=== PATIENT | female | born 1930 | race Caucasian/White ===

== ENCOUNTER → 2016-04-25 | Outpatient (CLI) | payer MEDICARE, OTHER ==
--- NOTE | 2016-04-25 10:36 | RAD ---
EXAM DESCRIPTION: Right shoulder series. CLINICAL HISTORY: Right shoulder pain. COMPARISON: None. TECHNIQUE: Three views of the shoulder were acquired. FINDINGS: No evidence of fracture or dislocation. Degenerative change of the acromioclavicular joint. The humeral head is high-riding which is suggestive of a rotator cuff tear. Osteophytes noted about the inferior margin of the glenoid and humeral head. IMPRESSION: Possible rotator cuff tear as the humeral head is high-riding Electronically signed by: London Malcolm MD 04/25/2016 10:34
== END ==
LOC: RAD 09:21
PROVIDERS: ATTEND Orthopaedic Surgery
DX: M25.511 Pain in right shoulder (principal)

== ENCOUNTER → 2016-05-16 | Outpatient (CLI) | payer MEDICARE, OTHER | LOC: GMAB 10:32 | PROVIDERS: ATTEND Family Medicine | DX: D50.9 Iron deficiency anemia, unspecified (principal) ==

== ENCOUNTER → 2016-08-09 | Outpatient (CLI) | payer MEDICARE, OTHER ==
--- NOTE | 2016-08-10 11:26 | RAD ---
EXAM DESCRIPTION: Pelvis CLINICAL HISTORY: 86 years, Female, PAIN COMPARISON: None. FINDINGS: No fractures or other acute abnormalities of the pelvis. Mild loss of joint space of both hips and axial direction. There is some disc disease and facet disease in lower lumbar spine IMPRESSION: No acute findings in the pelvis. 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
== END ==
LOC: RAD 14:13
PROVIDERS: ATTEND Orthopaedic Surgery
DX: M25.551 Pain in right hip (principal)

== ENCOUNTER → 2016-08-22 | Outpatient (CLI) | payer MEDICARE, OTHER | LOC: GMAB 10:16 | PROVIDERS: ATTEND Family Medicine | DX: D50.9 Iron deficiency anemia, unspecified (principal) ==

== ENCOUNTER → 2016-11-27 | Outpatient (CLI) | payer MEDICARE, OTHER | END | disposition home or self-care (01) | LOC: GMAB 10:03 | PROVIDERS: ATTEND Family Medicine | DX: D50.9 Iron deficiency anemia, unspecified (principal) ==

== ENCOUNTER → 2016-11-29 | Outpatient (CLI) | payer MEDICARE, OTHER ==
--- NOTE | 2016-11-29 11:15 | RAD ---
EXAM DESCRIPTION: Wrist,Right 3 Views CLINICAL HISTORY: 86 years, Female, PAIN IN RIGHT WRIST COMPARISON: FINDINGS: No fracture or dislocation. Degenerative type narrowing of the radiocarpal joint space. Calcification of the triangular fibrocartilage compatible pseudogout. Degenerative changes in the 1st carpometacarpal joint and laterally into carpal row. Arthritic changes in the 1st metacarpal phalangeal joint and interphalangeal joint of thumb. IMPRESSION: No acute fracture or dislocation. Findings of pseudogout in the wrist. Fairly advanced arthritic changes laterally in the wrist and visualized hand as discussed above Electronically signed by: Benji Urrutia MD 11/29/2016 11:14 AM CDT
== END | disposition home or self-care (01) ==
LOC: RESP 09:05
PROVIDERS: ATTEND Orthopaedic Surgery
DX: M25.531 Pain in right wrist (principal)

== ENCOUNTER → 2017-01-18 | Outpatient (CLI) | payer MEDICARE, OTHER | END | disposition home or self-care (01) | LOC: GMAB 11:25 | PROVIDERS: ATTEND Family Medicine | DX: E78.2 Mixed hyperlipidemia (principal); I10 Essential (primary) hypertension; E11.9 Type 2 diabetes mellitus without complications ==

== ENCOUNTER → 2017-06-01 | Outpatient (CLI) | payer MEDICARE, OTHER | LOC: GMAB 10:53 | PROVIDERS: ATTEND Family Medicine | DX: D50.9 Iron deficiency anemia, unspecified (principal) ==

== ENCOUNTER → 2017-08-21 | Outpatient (CLI) | payer OTHER | LOC: GMAB 11:01 | PROVIDERS: ATTEND Family Medicine | DX: D50.9 Iron deficiency anemia, unspecified (principal) ==

== ENCOUNTER 2018-01-03 15:38 | Emergency (ER) | payer MEDICARE, OTHER ==
[2018-01-03 16:39] VITALS: TEMP 98.2
[2018-01-03] MEDS ORDERED: cefTRIAXone SODIUM 1 GM in SODIUM CHL 0.9% 50ML MIN-BAG+ 50 ML IVPB ONE (17:10)
[2018-01-03] MEDS ORDERED: VANCOMYCIN HCL INJ 1,000 MG, VANCOMYCIN HCL INJ 250 MG in SODIUM CHLORIDE 0.9% 250ML 25... IVPB ONE (17:10)
[2018-01-03] MEDS ORDERED: cefTRIAXone SODIUM 1 GM VIAL ONE (17:14)
[2018-01-03] MEDS ORDERED: SODIUM CHL 0.9% 50ML MIN-BAG+ 50 ML IVPB ONE (17:14)
--- NOTE | 2018-01-03 17:34 | ED.PDOC ---
History of Present Illness - General Chief Complaint: General Stated Complaint: R wrist swelling Time Seen by Provider: 01/03/18 15:57 Source: patient, RN/MD Exam Limitations: no limitations - History of Present Illness Initial Comments: the patient is an 87-year-old female presenting to the emergency room secondary to pain in her right wrist. The patient has had some pain and swelling and erythema present for at least the last 3-5 days. She does have arthritic changes in suspicious lesions on her knuckles that could be tophi. No definite history of gout or pseudogout with this patient. She has not had any great fevers. She does have diffuse arthritis. She has pain to palpation and pain with movement. No other areas of suspicion. There are no lacerations. The patient was sent here from to the emergency room by her primary care doctor for aspiration of the wrist joint. The patient does report an allergy to penicillins and NSAIDs. She believes she can take cephalosporins. Severity: mild Improving Factors: immobilization Worsening Factors: movement Associated Symptoms: denies symptoms Allergies/Adverse Reactions: Allergies Penicillin G Adverse Reaction (Verified 10/29/14 16:02) Nsaids Adverse Reaction (Uncoded 10/29/14 16:02) Pen Adverse Reaction (Uncoded 10/29/14 16:02) Home Medications: Ambulatory Orders Amitriptyline HCl [Elavil] 25 mg PO BEDTIME 01/03/18 Doxycycline (Monohydrate) [Doxycycline] 100 mg PO BID #20 tab 01/03/18 Esomeprazole Magnesium [Nexium] 20 mg PO DAILY 01/03/18 Glipizide 5 mg PO BID 01/03/18 Losartan Potassium & Hydrochlo [Losartan Potassium/Hydroc 100-12.5 mg] 1 tab PO DAILY 01/03/18 Metformin HCl 1,000 mg PO BID 01/03/18 Metoprolol Tartrate 12.5 mg PO DAILY 01/03/18 Montelukast [Singulair] 10 mg PO DAILY 01/03/18 Simvastatin 20 mg PO DAILY 01/03/18 Sulfa/Trimeth 800/160 (Ds) Tab [Bactrim DS Tab] 1 ea PO BID #20 tab 01/03/18 Review of Systems - Review of Systems Constitutional: States: no symptoms reported EENTM: States: no symptoms reported Respiratory: States: no symptoms reported Cardiology: States: no symptoms reported Gastrointestinal/Abdominal: States: no symptoms reported Genitourinary: States: no symptoms reported Musculoskeletal: States: see HPI Skin: States: no symptoms reported Neurological: States: no symptoms reported All other Systems: No Change from Baseline Past Medical History (General) - Patient Medical History Hx Stroke: No Hx Cardiac Disorders: Yes - Hx of heart murmur Hx Hypertension: Yes Hx Diabetes: Yes Hx Cancer: No Hx Hepatitis C: No Surgical History: other - Vaccination History Hx Tetanus, Diphtheria Vaccination: Yes Hx Influenza Vaccination: Yes - 2017 Hx Pneumococcal Vaccination: Yes - Social History Hx Tobacco Use: No Hx Chewing Tobacco Use: No Hx Alcohol Use: No Hx Substance Use: No Hx Substance Use Treatment: No Hx Depression: No Hx Physical Abuse: No Hx Emotional Abuse: No Hx Suspected Abuse: No - Female History Patient : No Family Medical History - Family History Mother Living Status: Hx Cardiac Disease: Yes Physical Exam - Physical Exam General Appearance: Alert, Comfortable, No apparent distress Eye Exam: bilateral normal Ears, Nose, Throat: normal ENT inspection Neck: full range of motion, supple Respiratory: no respiratory distress, no accessory muscle use Cardiovascular/Chest: normal peripheral pulses, no edema, other - regular rate Peripheral Pulses: radial,right: 2+, radial,left: 2+ Gastrointestinal/Abdominal: non tender, soft Rectal Exam: deferred Extremity: normal range of motion, no pedal edema, no calf tenderness, normal capillary refill, swelling, other - see history of present illness. Neurologic: manager acute II-XII nml as tested, alert, normal mood/affect, oriented x 3 Skin Exam: normal color - with the exception of erythema and warmth over the dorsal aspect primarily of the right wrist joint. Comments: Vital Signs - 24 hr 01/03/18 01/03/18 15:42 16:39 Temperature 98.2 F Pulse Rate [ 89 85 Left Radial] Respiratory 20 20 Rate Blood Pressure 161/68 162/75 [Left Arm] O2 Sat by Pulse 96 Oximetry Progress - Progress Progress: 01/03/18 17:35 the patient is a 87-year-old female presenting to emergency room secondary to inflammation of the right wrist with an associated leukocytosis. patient was sent here to the emergency room for aspiration. After risks and benefits were explained the patient did agree to proceed. The dorsal aspect of the right wrist was cleaned with alcohol. After mild flexion and ulnar deviation of the wrist an 18-gauge needle was inserted just distal to the distal radius and 1/3 cc of fairly clear synovial fluid was obtained followed by some summer blood, no doubt from trauma from the aspiration. No summer pus. Due to limitations of the laboratory facility at this time we are unable to obtain a Gram stain or evaluate for crystals here. There is likely not enough fluid for crystal evaluation either. Gram stain and culture will be sent off. Gram stain results should be back tomorrow. After discussing with her primary care doctor, it is determined to go ahead and give the patient a dose of vancomycin and Rocephin here tonight. She will be placed on Bactrim and doxycycline twice daily as an outpatient atleast until the Gram stain and culture results are back. ER warnings were given for any significant worsening. The patient does not appear to be any distress and there is no evidence of any sepsis. the patient will also be given 1 dose of oral prednisone here along with a liter of IV fluids which may help if this is an atypical presentation of gout. - Results/Orders Results/Orders: laboratory work from the clinic shows an ESR 40. White blood cell count has gone from 6000-13,000 on the last 3 days. X-ray of the wrist from 2 days ago shows significant DJD. Departure - Departure Clinical Impression: Wrist bursitis Qualifiers: Laterality: right Qualified Code(s): M70.11 - Bursitis, right hand Disposition: Discharge to Home or Self Care Condition: Fair Departure Forms: ED Discharge - Pt. Copy, Patient Portal Self Enrollment Diet: regular diet Activity: increase activity as tolerated Referrals: Joe Alonso MD [Primary Care Provider] - 1-2 Weeks Prescriptions: Doxycycline (Monohydrate) [Doxycycline] 100 mg PO BID #20 tab Sulfa/Trimeth 800/160 (Ds) Tab [Bactrim DS Tab] 1 ea PO BID #20 tab Home Medications: Ambulatory Orders Amitriptyline HCl [Elavil] 25 mg PO BEDTIME 01/03/18 Doxycycline (Monohydrate) [Doxycycline] 100 mg PO BID #20 tab 01/03/18 Esomeprazole Magnesium [Nexium] 20 mg PO DAILY 01/03/18 Glipizide 5 mg PO BID 01/03/18 Losartan Potassium & Hydrochlo [Losartan Potassium/Hydroc 100-12.5 mg] 1 tab PO DAILY 01/03/18 Metformin HCl 1,000 mg PO BID 01/03/18 Metoprolol Tartrate 12.5 mg PO DAILY 01/03/18 Montelukast [Singulair] 10 mg PO DAILY 01/03/18 Simvastatin 20 mg PO DAILY 01/03/18 Sulfa/Trimeth 800/160 (Ds) Tab [Bactrim DS Tab] 1 ea PO BID #20 tab 01/03/18 Additional Instructions: the patient is a 87-year-old female presenting to emergency room secondary to inflammation of the right wrist with an associated leukocytosis. patient was sent here to the emergency room for aspiration. 1/3 cc of fairly clear synovial fluid was obtained followed by some summer blood, no doubt from trauma from the aspiration. No summer pus. Due to limitations of the laboratory facility at this time we are unable to obtain a Gram stain or evaluate for crystals here. There is likely not enough fluid for crystal evaluation either. Gram stain and culture will be sent off. Gram stain results should be back tomorrow. After discussing with her primary care doctor, it is determined to go ahead and give the patient a dose of vancomycin and Rocephin here tonight. She will be placed on Bactrim and doxycycline twice daily as an outpatient atleast until the Gram stain and culture results are back. ER warnings were given for any significant worsening. The patient does not appear to be any distress and there is no evidence of any sepsis. the patient will also be given 1 dose of oral prednisone here along with a liter of IV fluids which may help if this is an atypical presentation of gout. she has to hold her cholesterol medications while on the antibiotics
[2018-01-03] MEDS ORDERED: SODIUM CHLORIDE 0.9% 1000ML 1,000 ML IVS ONE (17:43)
[2018-01-03] MEDS ORDERED: predniSONE 20 MG TAB PO ONE (17:43)
[2018-01-03] MEDS ORDERED: VANCOMYCIN HCL INJ 1,000 MG VIAL IVPB ONE (17:48)
[2018-01-03] MEDS ORDERED: VANCOMYCIN HCL INJ 500 MG VIAL ONE (17:49)
[2018-01-03] MEDS ORDERED: SODIUM CHLORIDE 0.9% 250ML 250 ML ONE (17:49)
[2018-01-03 20:02] VITALS: O2SAT 93
[2018-01-03 20:28] VITALS: BP 186/60
== END 2018-01-03 20:16 | disposition home or self-care (01) ==
LOC: ER 15:38
DX: M70.11 Bursitis, right hand (principal); E11.9 Type 2 diabetes mellitus without complications; I10 Essential (primary) hypertension; Z79.899 Other long term (current) drug therapy; Z79.84 Long term (current) use of oral hypoglycemic drugs; Z88.0 Allergy status to penicillin; Z88.6 Allergy status to analgesic agent
CPT/HCPCS: 84550; 87070; 87205; J0696; J3370; J7030; J7050; J7512

== ENCOUNTER → 2018-01-21 | Outpatient (CLI) | payer OTHER | LOC: GMAE 10:18 | PROVIDERS: ATTEND Family Medicine | DX: I10 Essential (primary) hypertension (principal) ==

== ENCOUNTER 2018-03-12 20:36 | Inpatient (IN) | payer OTHER ==
[~2018-03-12 20:36] MED LIST: LABETALOL INJ 5 MG/ML VIAL ONE; LIDOCAINE 1% 10 ML VIAL INJ ONE; ONDANSETRON INJ 4 MG/2 ML VIAL ONE; PHENYLEPHRINE INJ 1ML 10 MG/ML VIAL ONE; PROPOFOL 200 MG/20 ML VIAL IV ONE; VECURONIUM BROMIDE 10 MG VIAL IV ONE; WATER FOR INJ 10 ML VIAL INJ ONE
--- NOTE | 2018-03-12 20:42 | ED.PDOC ---
History of Present Illness - General Chief Complaint: Lower Extremity Injury Stated Complaint: Left hip pain Time Seen by Provider: 03/12/18 20:39 Source: RN notes reviewed, EMS notes reviewed Additional Information: 87 YEAR OLD FELL AT HOME ONTO A HARD WOOD FLOOR AND SUSTAINED INJURY TO THE LEFT HIP SHE DENIES ANY OTHER INJURY SHE STATES SHE WAS ABLE TO STAND UP BUT WAS UNABLE TO BEAR WEIGHT PHYSICAL EXAM AWAKE ALERT NORMAL HEAD NECK CHEST AND BACK EXAM WIHTOUT ANY CLINICAL EVIDENCE OF INJURY LEFT HIP IS TENDER L L EXTREMITY IS EXTERNALLY ROTATED NO NEURO VASCULAR DEFICIT - History of Present Illness Occurred: just prior to arrival Pain - Lower Extremity: moderate: Left Thigh/Hip Method of Injury: fell Improving Factors: immobilization Worsening Factors: movement Allergies/Adverse Reactions: Allergies Aspirin Allergy (Verified 03/12/18 20:57) Penicillin G Adverse Reaction (Verified 03/12/18 20:58) Nsaids Adverse Reaction (Intermediate, Uncoded 03/12/18 20:59) Pen Adverse Reaction (Uncoded 10/29/14 16:02) Home Medications: Ambulatory Orders Amitriptyline HCl [Elavil] 25 mg PO BEDTIME 01/03/18 Esomeprazole Magnesium [Nexium] 20 mg PO DAILY 01/03/18 Glipizide 5 mg PO BID 01/03/18 Losartan Potassium & Hydrochlo [Losartan Potassium/Hydroc 100-12.5 mg] 1 tab PO DAILY 01/03/18 Metformin HCl 1,000 mg PO BID 01/03/18 Metoprolol Tartrate 12.5 mg PO DAILY 01/03/18 Montelukast [Singulair] 10 mg PO DAILY 01/03/18 Simvastatin 20 mg PO DAILY 01/03/18 Review of Systems - Review of Systems Constitutional: States: no symptoms reported EENTM: States: no symptoms reported Respiratory: States: no symptoms reported Cardiology: States: no symptoms reported Gastrointestinal/Abdominal: States: no symptoms reported Genitourinary: States: no symptoms reported Musculoskeletal: States: no symptoms reported Skin: States: no symptoms reported Neurological: States: no symptoms reported Endocrine: States: no symptoms reported Past Medical History (General) - Patient Medical History Hx Stroke: No Hx Cardiac Disorders: Yes - Hx of heart murmur Hx Hypertension: Yes Hx Diabetes: Yes Hx Cancer: No Hx Hepatitis C: No - Vaccination History Hx Tetanus, Diphtheria Vaccination: Yes Hx Influenza Vaccination: Yes - 2017 Hx Pneumococcal Vaccination: Yes - Social History Hx Tobacco Use: No Hx Chewing Tobacco Use: No Hx Alcohol Use: No Hx Substance Use: No Hx Substance Use Treatment: No Hx Depression: No Hx Physical Abuse: No Hx Emotional Abuse: No Hx Suspected Abuse: No - Female History Patient : No Family Medical History - Family History Mother Living Status: Hx Cardiac Disease: Yes Physical Exam - Physical Exam General Appearance: Alert, Comfortable Eyes, Ears, Nose, Throat: PERRL/EOMI, normal ENT inspection, pharynx normal Neck: non-tender, full range of motion, supple Cardiovascular/Respiratory: regular rate, rhythm, no M/R/G, normal peripheral pulses Back: normal inspection, no CVA tenderness, no vertebral tenderness Thigh/Hip: deformity, limited ROM, pain, soft tissue tenderness Leg: deformity, limited ROM Knee: normal inspection, non-tender, no evidence of injury Ankle: normal inspection, non-tender, no evidence of injury Progress - Results/Orders Results/Orders: X RAY PELVIS HIP REVIEWED SUB CAPITAL FRACTURE LEFT HIP NOTED Departure - Departure Clinical Impression: Fracture of femoral neck, left, closed Time of Disposition: 21:15 Disposition: Admit Patient Condition: Good Departure Forms: ED Discharge - Pt. Copy, Patient Portal Self Enrollment Instructions: DI for Leg Pain Home Medications: Ambulatory Orders Amitriptyline HCl [Elavil] 25 mg PO BEDTIME 01/03/18 Esomeprazole Magnesium [Nexium] 20 mg PO DAILY 01/03/18 Glipizide 5 mg PO BID 01/03/18 Losartan Potassium & Hydrochlo [Losartan Potassium/Hydroc 100-12.5 mg] 1 tab PO DAILY 01/03/18 Metformin HCl 1,000 mg PO BID 01/03/18 Metoprolol Tartrate 12.5 mg PO DAILY 01/03/18 Montelukast [Singulair] 10 mg PO DAILY 01/03/18 Simvastatin 20 mg PO DAILY 01/03/18 Comments: DISCUSSED WITH THADDEUS NIETO NP AND DR KAROLYN TOTH ORTHO WILL ADMIT
--- NOTE | 2018-03-12 21:11 | RAD ---
EXAM DESCRIPTION: Hip,Left 2 Views (accession [id number]), Pelvis (accession [id number]) CLINICAL HISTORY: 87 years Female, fall, left hip pain COMPARISON: 08/09/2016 FINDINGS: Single AP view of the pelvis and two views of the left hip joint. Displaced transcervical left femoral fracture. Left femoro-acetabular alignment is maintained. Pubic symphysis and bilateral SI joints are within normal limits. No acute finding of the right hip joint. Mild underlying degenerative changes of bilateral hip joints. IMPRESSION: Displaced left femoral neck fracture. Electronically signed by: Adelia Valenzuela MD 03/12/2018 9:10 PM [facility]
--- NOTE | 2018-03-12 21:12 | RAD ---
EXAM DESCRIPTION: Hip,Left 2 Views (accession [id number]), Pelvis (accession [id number]) CLINICAL HISTORY: 87 years Female, fall, left hip pain COMPARISON: 08/09/2016 FINDINGS: Single AP view of the pelvis and two views of the left hip joint. Displaced transcervical left femoral fracture. Left femoro-acetabular alignment is maintained. Pubic symphysis and bilateral SI joints are within normal limits. No acute finding of the right hip joint. Mild underlying degenerative changes of bilateral hip joints. IMPRESSION: Displaced left femoral neck fracture. Electronically signed by: Adelia Valenzuela MD 03/12/2018 9:10 PM [facility]
[2018-03-12] MEDS ORDERED: PROMETHAZINE HCL INJ 25 MG/ML VIAL ONE (21:15)
[2018-03-12] MEDS ORDERED: PROMETHAZINE HCL INJ 25 MG/ML VIAL IM ONE (21:20)
--- NOTE | 2018-03-12 21:22 | RAD ---
EXAM DESCRIPTION: Chest,1 View CLINICAL HISTORY: 87 years Female fall COMPARISON: None. FINDINGS: Lungs are hyperinflated. Probable scarring or atelectasis in the left base. Some increased density over the right lung apex which may be secondary to scarring or fibrosis. Underlying infiltrate is not excluded. Calcification in aorta. IMPRESSION: Pulmonary hyperinflation Question fibrosis or infiltrate in the right apex Electronically signed by: Richelle Hutson MD 03/12/2018 9:21 PM [employer]
--- NOTE | 2018-03-12 22:01 | HP ---
SUPERVISING PHYSICIAN: CHIEF COMPLAINT: Left hip pain. HISTORY OF PRESENT ILLNESS: This is an 87-year-old female patient who fell at home while she was carrying some laundry. It was a same level fall onto her hardwood floor. She did pull herself to a table to pull herself up, but she was unable to bear weight. At that time, she called 911 and was brought into the Emergency Room. In the Emergency Room, an x-ray was completed on her pelvis and shows a displaced left femoral neck fracture. Her hip x-ray showed a displaced left femoral neck fracture. Her chest x-ray showed pulmonary hyperinflation with questionable fibrosis or infiltrate in the right apex. Her lab studies showed a normal white count of 8.7 with hemoglobin 12.6 and hematocrit 37.6, platelet count 408. Eosinophils were slightly high at 0.5 and 6.3%. Her coags were within normal limits. Her sodium was 138, potassium 3.4, chloride 98, BUN 22, glucose 194. Her urinalysis showed a trace of intact urine blood as well as 3 to 5 urine RBCs and 3 to 5 urine WBCs. Mclaughlin catheter was placed. Dr. Santa, orthopedic surgeon, was contacted and he agreed to see the patient in consult and I was called for hospital admission. PAST MEDICAL HISTORY: 1. Seasonal allergies. 2. Type 2 diabetes. 3. Gastroesophageal reflux disease. 4. Hyperlipidemia. 5. Hypertension. PAST SURGICAL HISTORY: 1. Right knee replacement. 2. Left knee replacement. 3. Cervical fusion. 4. Thyroid surgery. OUTPATIENT MEDICATIONS: 1. Glipizide. 2. Losartan/hydrochlorothiazide. 3. Metformin. 4. Singulair. 5. Simvastatin. 6. Nexium. 7. Amitriptyline. 8. Metoprolol. ALLERGIES: 1. Ibuprofen. 2. Penicillin. 3. Salicylates. SOCIAL HISTORY: She lives in [place]. She denies any tobacco, ETOH or illicit drug use. REVIEW OF SYSTEMS: GENERAL: Negative for fever, fatigue or weight changes. HEENT: Positive for seasonal allergies. Negative for ear pain, vision changes or sore throat. RESPIRATORY: Negative for wheezing, coughing or shortness of breath. CARDIAC: Negative for chest pain, palpitations or tachycardia. GASTROINTESTINAL: Negative for nausea, vomiting, diarrhea, constipation. GENITOURINARY: Negative for hematuria, dysuria or polyuria. SKIN: Negative for lesions or rashes. MUSCULOSKELETAL: As per history of present illness. NEUROLOGIC: Negative for headache, dizziness or seizures. PHYSICAL EXAMINATION: VITAL SIGNS: Temperature 98.1. Heart rate 88. Blood pressure 156/88. Respiratory rate 18. O2 saturation 95% on room air. GENERAL: This is an 87-year-old female patient lying in her hospital bed. She is in no acute distress. HEENT: Normocephalic, atraumatic. Pupils are equal and reactive. Oropharynx is clear. NECK: Supple without mass. RESPIRATORY: Essentially clear to auscultation bilaterally. CHEST: There is equal rise and fall of the chest with inspiration and expiration. CARDIOVASCULAR: Regular rate and rhythm. She does have a grade IV-V systolic murmur. GASTROINTESTINAL: Abdomen is soft, nondistended, nontender. Bowel sounds are positive. EXTREMITIES: No cyanosis, clubbing or edema. SKIN: Warm and dry. There are no lesions or rashes noted. NEUROLOGIC: Awake, alert and oriented times three. LABORATORY: Labs and films are as per history of present illness. IMPRESSION: 1. Left hip fracture. 2. Electrolyte imbalance, specifically hypokalemia. 3. Gastroesophageal reflux disease. 4. Hypertension. 5. Diabetes mellitus, type 2. 6. Seasonal allergies. PLAN: We will admit the patient to the hospital. I have initiated Dr. Santa's preoperative orders. Dr. aSnta, orthopedic surgeon, has also been consulted. I have restarted her home medications. She will be NPO at midnight. I will also check her magnesium as well as repeat her labs in the morning. I spoke with Dr. Santa and at this point I see no infectious process or other problems to prevent her from going to surgery. I have requested her cardiac history from Dr. Jolly's office. We will continue to follow her closely. I will see her postoperatively. #[id number]; #[id number] [facility]
[2018-03-12] MEDS ORDERED: LACTATED RINGERS 1,000 ML IVS PRN (22:21)
[2018-03-12] MEDS ORDERED: POTASSIUM CHLORIDE 20 MEQ TAB PO ONE (22:21)
[2018-03-12] MEDS ORDERED: ONDANSETRON INJ 4 MG/2 ML VIAL IV PRN ×2 (22:26→22:36)
[2018-03-12] MEDS ORDERED: SODIUM CHLORIDE 0.9% (FLUSH) 10 ML SYG IV PRN (22:26)
[2018-03-12] MEDS ORDERED: TEMAZEPAM 15 MG CAP PO PRN (22:26)
[2018-03-12] MEDS ORDERED: GLUCAGON INJ 1 MG VIAL SUBCU PRN (22:31)
[2018-03-12] MEDS ORDERED: DEXTROSE 50% 25 GM/50 ML SYG IV PRN (22:31)
[2018-03-12] MEDS ORDERED: LACTATED RINGERS 1,000 ML ONE (22:46)
[2018-03-12] MEDS: IV SET AND CAP CHANGE INJ INJ SCH ×2 (22:52)
[2018-03-12] MEDS: MORPHINE SULFATE INJ 10 MG/ML VIAL IV PRN (23:17)
[2018-03-13] MEDS: MORPHINE SULFATE INJ 10 MG/ML VIAL IV PRN ×4 (02:36→18:28)
[2018-03-13] MEDS ORDERED: MAGNESIUM SULFATE PREMIX 4GM 4 GM in PREMIX BAG 1 BAG IVPB ONE (06:16)
[2018-03-13] MEDS ORDERED: MAGNESIUM SULFATE PREMIX 4GM 50 ML IVPB ONE (06:23)
[2018-03-13] MEDS: PANTOPRAZOLE SODIUM IV 40 MG VIAL IV SCH (06:40)
[2018-03-13] MEDS ORDERED: SODIUM CHLORIDE 0.9% 100ML 100 ML IVPB ONE ×2 (08:05→14:49)
[2018-03-13] MEDS ORDERED: SODIUM CHLORIDE 0.9% 1000ML 1,000 ML IVS PRN (08:20)
[2018-03-13] MEDS: INSULIN LISPRO 100 UNITS/ML PEN SUBCU SCH ×4 (08:27→22:36)
[2018-03-13] MEDS: METOPROLOL TARTRATE 25 MG TAB PO SCH (08:33)
[2018-03-13] MEDS ORDERED: VANCOMYCIN HCL INJ 1,000 MG in SODIUM CHLORIDE 0.9% 250ML 250 ML IVPB ONE (09:00)
[2018-03-13] MEDS ORDERED: ceFAZolin SODIUM 2 GM in SODIUM CHLORIDE 0.9% 100ML 100 ML IVPB ONE (09:00)
[2018-03-13] MEDS ORDERED: DEXTROSE 50% 25 GM/50 ML SYG IV ONE (11:37)
[2018-03-13] MEDS: DEX 5% W/NACL 0.9% 1000ML 1,000 ML IVS PRN ×2 (11:47→20:32)
[2018-03-13] MEDS ORDERED: ceFAZolin SODIUM 2 GRAMS PREMI 50 ML IVPB SCH (12:05)
[2018-03-13] MEDS ORDERED: ceFAZolin SODIUM 1 GM VIAL ONE ×2 (13:22→13:50)
[2018-03-13] MEDS ORDERED: VANCOMYCIN HCL INJ 1,000 MG VIAL IVPB ONE ×2 (13:50→14:53)
[2018-03-13] MEDS ORDERED: BUPIVACAINE 0.25% W/EPI 50 ML VIAL INJ ONE (13:50)
[2018-03-13] MEDS ORDERED: fentaNYL CITRATE INJ 50 MCG/ML AMP ONE (13:52)
[2018-03-13] MEDS ORDERED: MIDAZOLAM INJ 2 MG/2 ML VIAL ONE (13:52)
[2018-03-13] MEDS ORDERED: SUCCINYLCHOLINE CHLORIDE 200 MG/10 ML VIAL ONE (13:55)
[2018-03-13] MEDS ORDERED: SODIUM CHLORIDE 0.9% 50 ML VIAL ONE (14:02)
[2018-03-13] MEDS ORDERED: VANCOMYCIN HCL INJ 1,000 MG in SODIUM CHLORIDE 0.9% 250ML 250 ML IVPB SCH (14:30)
[2018-03-13] MEDS: ceFAZolin SODIUM 2 GRAMS PREMI 2 GM in PREMIX BAG 1 BAG IVPB SCH ×2 (14:35→22:37)
[2018-03-13] MEDS ORDERED: TRANEXAMIC ACID 1,000 MG/10 ML VIAL ONE ×2 (14:49→14:58)
[2018-03-13] MEDS ORDERED: CLINDAMYCIN IV 900MG 50 ML IVPB ONE (14:52)
[2018-03-13] MEDS ORDERED: SODIUM CHLORIDE 0.9% 250ML 250 ML ONE (14:53)
[2018-03-13] MEDS: TRANEXAMIC ACID 1,000 MG/10 ML VIAL IV ONE ×2 (14:55→18:11)
[2018-03-13] MEDS: BUPIVACAINE LIPOSOME 13.3 MG/ML VIAL INJ ONE ×2 (15:45→16:15)
[2018-03-13] MEDS: BUPIVACAINE 0.25% INJ 30 ML VIAL INJ ONE ×2 (15:45→16:15)
[2018-03-13] MEDS ORDERED: LACTATED RINGERS 1,000 ML ONE (16:48)
[2018-03-13] MEDS: SODIUM CHLORIDE 0.9% (FLUSH) 10 ML SYG IV SCH ×2 (16:50→20:41)
--- NOTE | 2018-03-13 17:28 | RAD ---
EXAM DESCRIPTION: Hip,Left 2 Views (accession [id number]), Pelvis,2 or More Views (accession [id number]) CLINICAL HISTORY: 87 years Female post op COMPARISON: 03/12/2018. TECHNIQUE: Two views of the pelvis and two views of the left hip. FINDINGS: There are interval changes from left hip arthroplasty. The surgical hardware appears intact. No acute osseous abnormality related to the procedure is identified. There is gas in the soft tissues lateral to the left hip consistent with postsurgical changes. No acute abnormality is identified involving the right hip. Large amount of stool is visualized in the colon in the right lower abdomen. There is gaseous distention also visualized in some loops of the colon. IMPRESSION: Postsurgical changes from left hip arthroplasty. Electronically signed by: Wojciech Hutson MD 03/13/2018 5:27 PM [facility]
--- NOTE | 2018-03-13 17:28 | RAD ---
EXAM DESCRIPTION: Hip,Left 2 Views (accession [id number]), Pelvis,2 or More Views (accession [id number]) CLINICAL HISTORY: 87 years Female post op COMPARISON: 03/12/2018. TECHNIQUE: Two views of the pelvis and two views of the left hip. FINDINGS: There are interval changes from left hip arthroplasty. The surgical hardware appears intact. No acute osseous abnormality related to the procedure is identified. There is gas in the soft tissues lateral to the left hip consistent with postsurgical changes. No acute abnormality is identified involving the right hip. Large amount of stool is visualized in the colon in the right lower abdomen. There is gaseous distention also visualized in some loops of the colon. IMPRESSION: Postsurgical changes from left hip arthroplasty. Electronically signed by: Wojciech Hutson MD 03/13/2018 5:27 PM [facility]
[2018-03-13] MEDS: ALBUTEROL SULFATE 2.5 MG/3 ML VIAL NEB PRN (17:30)
[2018-03-13] MEDS: ENOXAPARIN SODIUM 30 MG/0.3 ML SYG SUBCU SCH (18:13)
[2018-03-13] MEDS ORDERED: ceFAZolin SODIUM 2 GRAMS PREMI 50 ML IVPB ONE (20:26)
[2018-03-13] MEDS: AMITRIPTYLINE HCL 25 MG TAB PO SCH (20:38)
--- NOTE | 2018-03-13 23:18 | PN ---
DATE: 03/13/18 SUPERVISING PHYSICIAN: Bennett Carbajal M.D. SUBJECTIVE: The patient is lying in bed. She complained of pain last night but her pain has been relieved today. I told her she would most likely be going to surgery today and she voiced agreement. I told her Dr. Santa would be by to see her later. She denied any coughing, shortness of breath, chest pain, nausea, vomiting, diarrhea or constipation. OBJECTIVE: VITAL SIGNS: Temperature 97.8, heart rate 74, blood pressure 169/72 , respiratory rate 16, O2 sat 97% on room air. RESPIRATORY: Essentially clear to auscultation bilaterally. CARDIAC: Regular rate and rhythm. GASTROINTESTINAL: Abdomen is soft, nondistended, non-tender. Bowel sounds are positive. NEUROLOGIC: She is awake, alert and oriented times three. EXTREMITIES: She does have some tenderness over the left lateral hip area but there is no bruising noted. LABORATORY: CBC is basically within normal limits. Chemistries show blood sugars from 52 to 216. Sodium is slightly low at 133, potassium 4.0, chloride 95, serum osmolality 273. She did have a 1.4 magnesium. Urine culture is pending. All other labs and films have been reviewed via the EMR. ASSESSMENT: 1. Left hip fracture. 2. Electrolyte imbalance, hypokalemia and hypomagnesemia. She has received supplemental replacement for those. 3. Gastroesophageal reflux disease. 4. Hypertension. 5. Diabetes mellitus, type 2. 6. Seasonal allergies. PLAN: We will continue present supportive care. She will go to surgery today and I will see the patient postoperatively. Her medications have been continued. Will encourage good pulmonary hygiene. Orthopedic issues will be per Dr. Kunal Santa, orthopedic surgeon. She will start her physical therapy for strengthening and conditioning tomorrow. Will follow the patient as needed. #[id number] [facility]
[2018-03-14] MEDS ORDERED: ceFAZolin SODIUM 2 GRAMS PREMI 50 ML IVPB ONE (02:18)
[2018-03-14] MEDS: ENOXAPARIN SODIUM 30 MG/0.3 ML SYG SUBCU SCH ×2 (02:22→14:43)
[2018-03-14] MEDS: ALBUTEROL SULFATE 2.5 MG/3 ML VIAL NEB PRN ×3 (02:40→16:48)
[2018-03-14] MEDS: PANTOPRAZOLE SODIUM IV 40 MG VIAL IV SCH (06:05)
[2018-03-14] MEDS: ceFAZolin SODIUM 2 GRAMS PREMI 2 GM in PREMIX BAG 1 BAG IVPB SCH (06:06)
[2018-03-14] MEDS: INSULIN LISPRO 100 UNITS/ML PEN SUBCU SCH ×4 (08:05→21:34)
--- NOTE | 2018-03-14 08:47 | OP ---
DATE OF PROCEDURE: 03/13/18 PREOPERATIVE DIAGNOSIS: 1. Subcapital femoral neck fracture. POSTOPERATIVE DIAGNOSIS: 1. Subcapital femoral neck fracture. PROCEDURE: 1. Hemiarthroplasty. SURGEON: Kunal Santa MD. MEDICAL ASST: Demarcus Rasheed CST, SA-C. ANESTHESIA: General anesthesia. COMPLICATIONS: None. FINDINGS: Subcapital femoral neck fracture. INDICATION: Ms. Woo is an 87-year-old female that lives on her own. She was at home and fell with the acute onset of pain in the hip. She was taken to the Emergency Room and x-rays revealed a fracture of the femoral neck. Following the evaluation in the Emergency Room, she was admitted for definitive treatment. We discussed the risks, benefits and alternatives to operative therapy with her and informed consent was obtained. PROCEDURE: The patient was brought to the Operating Room and placed in supine position. Anesthesia was induced and the patient was transitioned into the lateral decubitus position. The leg and hemipelvis were sterilely prepped and draped and an incision was made centered on the greater trochanter with extension both proximally and distally. Dissection was carried down to the iliotibial band which was sharply incised along the course of its fibers. A Charnley retractor was placed and the abductor musculature was identified. The anterior one-third of the abductor musculature was elevated off the greater trochanter using electrocautery and the capsule was incised. The femoral head was removed and the primary femoral neck cut was made. The acetabulum was examined and found to be free of any significant defect, therefore attention was focused on the femur. The femoral canal was sequentially broached until an appropriate sized trial prosthesis was placed. A trial femoral head was placed and the hip was reduced. The hip was taken through a full range of motion and demonstrated stability without impingement or pending dislocation and the leg length appeared to be paresthesias. Following trialing, the trial component was removed and the femoral canal was prepared for cementation of the prosthesis. A distal cement restrictor was placed and the final component was cemented into place. The excess cement was removed and the remaining cement was allowed to cure. The final head was impacted and the hip was reduced, taken through a full range of motion, and found to be stable without impingement. The wound was thoroughly irrigated and the abductor musculature was reapproximated to the greater trochanter through drill holes using Ethibond. The repair was augmented with PDS suture and the iliotibial band was subsequently closed. The subcutaneous tissues were closed with a combination of running and interrupted subcuticular stitches, a sterile dressing was placed , and the patient was transitioned into the supine position. The patient was awoken from anesthesia and taken to the Recovery Room in stable condition. COMPONENTS: [place] [employer] stem with a 46 mm head. POSTOPERATIVE PLAN: The patient will be weight-bearing as tolerated on postoperative day 1. [facility][id number] [facility]
[2018-03-14] MEDS: SODIUM CHLORIDE 0.9% (FLUSH) 10 ML SYG IV SCH ×2 (08:50→21:35)
[2018-03-14] MEDS: METOPROLOL TARTRATE 25 MG TAB PO SCH (08:50)
--- NOTE | 2018-03-14 09:00 | PN ---
DATE: 03/14/18 SUBJECTIVE: Ms. Woo is doing pretty well. She has good pain control today. OBJECTIVE: Afebrile. Vital signs stable. Dressing is clean, dry and intact. ASSESSMENT: Status post hemiarthroplasty. PLAN: The plan at this point is for her to begin weightbearing as tolerated today. #[id number] [facility]
[2018-03-14] MEDS ORDERED: levoFLOXacin 500MG IV 100 ML IVPB ONE (09:43)
[2018-03-14] MEDS: levoFLOXacin 500MG IV 500 MG in PREMIX BAG 1 BAG IVPB SCH (09:48)
[2018-03-14] MEDS ORDERED: MAGNESIUM SULFATE PREMIX 2GM 2 GM in PREMIX BAG 1 BAG IVPB ONE (12:50)
[2018-03-14] MEDS ORDERED: POTASSIUM CHLORIDE 20 MEQ TAB PO ONE (12:53)
[2018-03-14] MEDS ORDERED: SODIUM CHLORIDE 0.9% 100ML 100 ML IVPB ONE ×2 (13:37→19:52)
[2018-03-14] MEDS ORDERED: MAGNESIUM SULFATE PREMIX 2GM 50 ML IVPB ONE (13:37)
[2018-03-14] MEDS ORDERED: ceFAZolin SODIUM 1 GM VIAL ONE ×2 (13:37→19:52)
--- NOTE | 2018-03-14 13:48 | PN ---
SUPERVISING PHYSICIAN: Bennett Carbajal MD DATE: 03/14/18 SUBJECTIVE: The patient is sitting up in her chair in her hospital room. She has family and friends in her room visiting. She has tolerated her clear liquid lunch without any problem. She says her pain is very minimal, but feels much better today. She is positive for a mild cough, but negative for any nausea, vomiting, diarrhea, shortness of breath or chest pain. It was reported from surgery yesterday by the [facility] that the patient had some thick sputum during intubation and she required several breathing treatments postoperatively. Other than that, she had no major problems intraoperatively or postoperatively. OBJECTIVE: VITAL SIGNS: T-max 24 hours is 100.8. Heart rate 101. Blood pressure 147/63. Respiratory rate 18. O2 saturation 98%. It did drop into the low 80s with exertion, but stabilized to the low 90s after she is resting. RESPIRATORY: Essentially clear to auscultation bilaterally. She is slightly diminished at the bases. CARDIAC: Regular rate and rhythm. At times, it is very mildly tachycardic. She does have grade IV systolic murmur. GASTROINTESTINAL: Abdomen is soft, nondistended, nontender. Bowel sounds are positive. EXTREMITIES: Dressing to her left lateral hip is dry and intact. Bilateral pedal pulses are palpable at +1. NEUROLOGIC: Awake, alert and oriented times three. LABORATORY: WBCs 8.5, hemoglobin 10.8, hematocrit 32.3. She has a mild left shift on differential. Blood sugars have run between 116 and 343. Sodium slightly low at 132, potassium 3.3, chloride 97, carbon dioxide 26, glucose 284 , calcium low at 8, magnesium low at 1.7. All other labs and films have been reviewed via the EMR. ASSESSMENT: 1. Left hip fracture status post left hemiarthroplasty per Dr. Kunal Santa, orthopedic surgeon, postoperative day #1. 2. Chronic obstructive pulmonary disease exacerbation with concerns for developing community acquired pneumonia. 3. Electrolyte imbalance, specifically hypokalemia and hypomagnesemia. 4. Chronic obstructive pulmonary disease. 5. Gastroesophageal reflux disease. 6. Hypertension. 6. Diabetes mellitus, type 2. 7. Seasonal allergies. PLAN: We will continue present supportive care. Orthopedic issues will be per Dr. Kunal Santa, orthopedic surgeon. She will continue with her physical therapy for strengthening and conditioning. Due to her history of chronic obstructive pulmonary disease and report of coughing as well as questionable chest x-ray from yesterday as well as report from anesthesia about her having some excess sputum after intubation as well as needing multiple breathing treatments at that time, I have initiated aggressive pulmonary hygiene as well as starting her on some Levaquin. I will repeat a chest x-ray in the morning as well as some laboratory. We will give her some magnesium and potassium supplementation. We will continue with good pulmonary hygiene. I have spoken with Dr. Santa about this change in her plan of care. He agrees with me. We will continue to monitor the patient closely and follow as needed. #[id number] [facility]
[2018-03-14] MEDS: ceFAZolin SODIUM 2 GM in SODIUM CHLORIDE 0.9% 100ML 100 ML IVPB SCH ×2 (14:41→22:53)
[2018-03-14] MEDS ORDERED: ALBUTEROL SULFATE 2.5 MG/3 ML VIAL NEB SCH (20:00)
[2018-03-14] MEDS: AMITRIPTYLINE HCL 25 MG TAB PO SCH (21:35)
[2018-03-15] MEDS: ENOXAPARIN SODIUM 30 MG/0.3 ML SYG SUBCU SCH ×2 (02:50→15:19)
[2018-03-15] MEDS ORDERED: SODIUM CHLORIDE 0.9% 100ML 100 ML IVPB ONE ×3 (03:08→20:31)
[2018-03-15] MEDS ORDERED: ceFAZolin SODIUM 1 GM VIAL ONE ×3 (03:08→20:31)
[2018-03-15] MEDS ORDERED: METOPROLOL TARTRATE 25 MG TAB PO ONE (03:57)
[2018-03-15] MEDS ORDERED: METOPROLOL TARTRATE INJ 5 MG/5 ML VIAL IV ONE (03:58)
[2018-03-15] MEDS: PANTOPRAZOLE SODIUM IV 40 MG VIAL IV SCH (06:21)
[2018-03-15] MEDS: ceFAZolin SODIUM 2 GM in SODIUM CHLORIDE 0.9% 100ML 100 ML IVPB SCH ×3 (06:21→23:02)
--- NOTE | 2018-03-15 06:52 | RAD ---
EXAM DESCRIPTION: Chest,1 View CLINICAL HISTORY: Pneumonia COMPARISON: March 12, 2018 IMPRESSION: Single AP portable upright view of the chest shows enlargement of the cardiac silhouette without pulmonary vascular congestion. Calcifications of a tortuous thoracic aorta are seen. Chronic appearing increased interstitial changes throughout the lungs have a similar appearance to previous exam without acute appearing infiltrate or consolidation. No pleural effusion or pneumothorax is seen. Electronically signed by: Mickey Macias MD 03/15/2018 6:51 AM [employer]
[2018-03-15] MEDS ORDERED: levoFLOXacin 500MG IV 100 ML IVPB ONE (07:34)
[2018-03-15] MEDS: INSULIN LISPRO 100 UNITS/ML PEN SUBCU SCH ×4 (07:36→21:21)
[2018-03-15] MEDS ORDERED: LEVALBUTEROL NEBS 1.25 MG/3 ML VIAL NEB PRN ×2 (08:00)
--- NOTE | 2018-03-15 08:21 | PN ---
DATE: 03/15/18 SUBJECTIVE: Ms. Woo seems to be doing really well today. She is resting comfortably. She was up yesterday with therapy. OBJECTIVE: Afebrile. Vital signs stable. Wound is clean. There are no signs or symptoms of infection. ASSESSMENT: Status post hemiarthroplasty. PLAN: The plan at this point is for her to continue with her weightbearing as tolerated. She will likely transition to Swing Bed. [facility][id number] [facility]
[2018-03-15] MEDS: SODIUM CHLORIDE 0.9% (FLUSH) 10 ML SYG IV SCH ×2 (08:31→21:19)
[2018-03-15] MEDS: METOPROLOL TARTRATE 25 MG TAB PO SCH (08:31)
[2018-03-15] MEDS: levoFLOXacin 500MG IV 500 MG in PREMIX BAG 1 BAG IVPB SCH (08:31)
[2018-03-15] MEDS: LEVALBUTEROL NEBS 1.25 MG/3 ML VIAL NEB SCH ×2 (09:01→16:39)
--- NOTE | 2018-03-15 13:23 | PN ---
SUPERVISING PHYSICIAN: Bennett Carbajal MD DATE: 03/15/18 SUBJECTIVE: The patient is sitting up in her bed. She is writing thank you notes. She has no complaints of nausea, vomiting, diarrhea, constipation, shortness of breath or chest pain. She has adequate pain control and feels like she is coughing much less and her upper respiratory symptoms have improved. She would like to stay in Swing Bed status in the hospital, but she understands that her insurance will most likely require her to go to [facility] for physical therapy there. OBJECTIVE: VITAL SIGNS: Afebrile. Heart rate 91. Blood pressure 137/65. Respiratory rate 18. O2 saturation 95% on 2 liters nasal cannula. RESPIRATORY: Essentially clear to auscultation bilaterally. She is slightly diminished at the bases, but there is no wheezing noted. CARDIAC: Regular rate and rhythm. GASTROINTESTINAL: Abdomen is soft, nondistended, nontender. Bowel sounds are positive. EXTREMITIES: Dressing to her left lateral hip is dry and intact. Bilateral pedal pulses are palpable at +2. There is no swelling or edema. NEUROLOGIC: Awake, alert and oriented times three. LABORATORY: WBCs 8.2, hemoglobin 10.4, hematocrit 31.1. Blood sugars have run between 144 and 383. Sodium slightly low at 132, potassium low at 3.2, chloride 97, magnesium 1.9, serum osmolality 268.9. Urine culture report is still pending. All other labs and films have been reviewed via the EMR. ASSESSMENT: 1. Left hip fracture status post left hemiarthroplasty per Dr. Kunal Santa, orthopedic surgeon, postoperative day #2. 2. Chronic obstructive pulmonary disease exacerbation with concerns for developing community acquired pneumonia. 3. Electrolyte imbalance, specifically hypokalemia and hypomagnesemia. 4. Chronic obstructive pulmonary disease. 5. Gastroesophageal reflux disease. 6. Hypertension. 6. Diabetes mellitus, type 2. 7. Seasonal allergies. PLAN: We will continue present supportive care. Orthopedic issues will be per Dr. Kunal Santa, orthopedic surgeon. She will continue with her physical therapy for strengthening and conditioning. We will also continue with her antibiotics as previously ordered as well as her aggressive pulmonary hygiene. We have not heard from Elizabeth on her discharge instructions, but plan for discharge to [facility] for her physical therapy at discharge. Hopefully that will be in the next day or so. We will continue to monitor the patient closely and follow as needed. #[id number] [facility]
[2018-03-15] MEDS: hydroCHLOROthiazide 12.5 MG CAP PO SCH (15:12)
[2018-03-15] MEDS: LOSARTAN POTASSIUM 100 MG TAB PO SCH (15:12)
[2018-03-15] MEDS ORDERED: metFORMIN HCL 500 MG TAB ONE (17:27)
[2018-03-15] MEDS: NON-FORMULARY MEDICATION 1 EA MIS (Metformin Hcl [Metformin Hcl] 1,000 MG) PO SCH (17:32)
[2018-03-15] MEDS ORDERED: OMEPRAZOLE CAP 20 MG CAP ONE (20:33)
[2018-03-15] MEDS: MONTELUKAST 10 MG TAB PO SCH (21:19)
[2018-03-15] MEDS: SIMVASTATIN 20 MG TAB PO SCH (21:19)
[2018-03-15] MEDS: AMITRIPTYLINE HCL 25 MG TAB PO SCH (21:19)
[2018-03-15] MEDS: IV SET AND CAP CHANGE INJ INJ SCH ×2 (23:03→23:04)
[2018-03-16] MEDS: LEVALBUTEROL NEBS 1.25 MG/3 ML VIAL NEB SCH ×4 (00:50→23:47)
[2018-03-16] MEDS: ENOXAPARIN SODIUM 30 MG/0.3 ML SYG SUBCU SCH ×2 (02:14→14:28)
[2018-03-16] MEDS ORDERED: SODIUM CHLORIDE 0.9% 100ML 100 ML IVPB ONE ×3 (05:13→20:38)
[2018-03-16] MEDS ORDERED: ceFAZolin SODIUM 1 GM VIAL ONE ×3 (05:13→20:38)
[2018-03-16] MEDS: OMEPRAZOLE CAP 20 MG CAP PO SCH (06:16)
[2018-03-16] MEDS: ceFAZolin SODIUM 2 GM in SODIUM CHLORIDE 0.9% 100ML 100 ML IVPB SCH ×3 (06:17→22:45)
[2018-03-16] MEDS ORDERED: levoFLOXacin 500MG IV 100 ML IVPB ONE (07:26)
[2018-03-16] MEDS ORDERED: metFORMIN HCL 500 MG TAB ONE (07:26)
[2018-03-16] MEDS: INSULIN LISPRO 100 UNITS/ML PEN SUBCU SCH ×4 (07:36→21:05)
[2018-03-16] MEDS: NON-FORMULARY MEDICATION 1 EA MIS (Metformin Hcl [Metformin Hcl] 1,000 MG) PO SCH (07:39)
[2018-03-16] MEDS: levoFLOXacin 500MG IV 500 MG in PREMIX BAG 1 BAG IVPB SCH (08:53)
[2018-03-16] MEDS: LOSARTAN POTASSIUM 100 MG TAB PO SCH (08:56)
[2018-03-16] MEDS: METOPROLOL TARTRATE 25 MG TAB PO SCH (08:56)
[2018-03-16] MEDS: hydroCHLOROthiazide 12.5 MG CAP PO SCH (08:56)
[2018-03-16] MEDS: SODIUM CHLORIDE 0.9% (FLUSH) 10 ML SYG IV SCH ×2 (08:57→20:58)
[2018-03-16] MEDS: ACETAMINOPHEN W/COD #3 TAB 1 EA TAB PO PRN ×2 (09:52→19:19)
[2018-03-16] MEDS: metFORMIN HCL 500 MG TAB PO SCH (17:20)
[2018-03-16] MEDS: AMITRIPTYLINE HCL 25 MG TAB PO SCH (20:58)
[2018-03-16] MEDS: MONTELUKAST 10 MG TAB PO SCH (20:59)
[2018-03-16] MEDS: SIMVASTATIN 20 MG TAB PO SCH (20:59)
--- NOTE | 2018-03-16 21:20 | PN ---
DATE: 03/16/18 SUPERVISING PHYSICIAN: Bennett Carbajal M.D. SUBJECTIVE: The patient reports that her pain has been well controlled. She has been working with physical therapy. Her daughter is at her bedside this morning. She is very pleasant. Appears to be comfortable. She has had no further complaints. I did discuss again her discharge planning and the fact that she is going to go to [facility] for continued physical therapy once her insurance has been completed. Until then will continue to keep her here and treat as needed. OBJECTIVE: VITAL SIGNS: Temperature 98.2, pulse 93, blood pressure 152/68, respirations 20, satting 95% on room air. I's and O's show a positive balance of 470 with 1220 in, 750 out. Weight is 61.5 kg. GENERAL: The patient is resting in bed comfortably. Appears to be in no acute distress. She is alert. CHEST: Lungs are clear bilaterally, just slightly diminished towards the bases. HEART: regular rate and rhythm. ABDOMEN: Soft, non-tender. Positive bowel sounds. EXTREMITIES: Left hip has a dressing in place which is clean and dry. No signs of infection. Pulses distally were 2+ bilaterally. NEUROLOGIC: She is alert and oriented times three. LABORATORY: Blood sugars have been between 196 and 272. ASSESSMENT: 1. Left hip fracture status post left hemiarthroplasty per Dr. Kunal Santa, orthopedic surgeon, postoperative day #3. 2. Chronic obstructive pulmonary disease with concerns for community acquired pneumonia but more likely atelectasis, but with the patient receiving aggressive treatment and management showing improvement. 3. Electrolyte imbalance, specifically hypokalemia and hypomagnesemia showing improvement with fluid replacement. 4. Gastroesophageal reflux disease. 5. Chronic hypertension showing to be stable. 6. Diabetes mellitus, type 2 with elevated blood sugars but fairly steady. 7. Seasonal allergies. PLAN: Will continue to follow the patient with her strengthening and reconditioning. She does continue on antibiotics which will complete course and aggressive pulmonary hygiene. Hopefully be able to discharge to [facility] tomorrow for continued physical therapy. Until that point will continue to monitor and treat as needed. #[id number] [facility]
[2018-03-16] MEDS ORDERED: SODIUM CHLORIDE 0.9% 500ML 500 ML IVS ONE (23:30)
[2018-03-16] MEDS ORDERED: METOPROLOL TARTRATE 25 MG TAB PO ONE (23:30)
[2018-03-17] MEDS: ACETAMINOPHEN W/COD #3 TAB 1 EA TAB PO PRN (01:47)
[2018-03-17] MEDS: ENOXAPARIN SODIUM 30 MG/0.3 ML SYG SUBCU SCH ×2 (02:46→14:33)
[2018-03-17] MEDS ORDERED: ceFAZolin SODIUM 1 GM VIAL ONE ×3 (06:28→20:01)
[2018-03-17] MEDS ORDERED: SODIUM CHLORIDE 0.9% 100ML 100 ML IVPB ONE ×3 (06:28→20:01)
[2018-03-17] MEDS: OMEPRAZOLE CAP 20 MG CAP PO SCH (06:41)
[2018-03-17] MEDS: ceFAZolin SODIUM 2 GM in SODIUM CHLORIDE 0.9% 100ML 100 ML IVPB SCH ×3 (06:41→22:40)
[2018-03-17] MEDS ORDERED: levoFLOXacin 500MG IV 100 ML IVPB ONE (07:38)
[2018-03-17] MEDS: INSULIN LISPRO 100 UNITS/ML PEN SUBCU SCH ×6 (07:41→21:45)
[2018-03-17] MEDS: metFORMIN HCL 500 MG TAB PO SCH ×2 (07:43→17:22)
[2018-03-17] MEDS: LEVALBUTEROL NEBS 1.25 MG/3 ML VIAL NEB SCH ×3 (07:53→23:47)
[2018-03-17] MEDS: hydroCHLOROthiazide 12.5 MG CAP PO SCH (08:38)
[2018-03-17] MEDS: LOSARTAN POTASSIUM 100 MG TAB PO SCH (08:38)
[2018-03-17] MEDS: SODIUM CHLORIDE 0.9% (FLUSH) 10 ML SYG IV SCH ×2 (08:38→21:14)
[2018-03-17] MEDS: METOPROLOL TARTRATE 25 MG TAB PO SCH ×2 (08:38→17:21)
[2018-03-17] MEDS: levoFLOXacin 500MG IV 500 MG in PREMIX BAG 1 BAG IVPB SCH (08:39)
[2018-03-17] MEDS ORDERED: METOPROLOL TARTRATE 25 MG TAB ONE (12:05)
[2018-03-17] MEDS ORDERED: glipiZIDE 5 MG TAB PO ONE (17:00)
--- NOTE | 2018-03-17 17:18 | PN ---
DATE: SUPERVISING PHYSICIAN: Bennett Carbajal M.D. SUBJECTIVE: The patient continues to do well. She has been afebrile. She has had good pain control and is able to transfer from the bedside to the chair, and has been participating with physical therapy. I discussed at length again plan of care and hopefully being able to transfer to [facility] for continued rehab efforts once that has been arranged. OBJECTIVE: VITAL SIGNS: She remains afebrile, temperature 97.6, pulse 104, blood pressure 141/64, respirations 20, satting 99% on 2 liters nasal cannula. I's and O's show a positive balance of 250 with 1650 in, 1400 out. She has not shown yet to have a bowel movement. Weight is 61.5 kg. GENERAL: The patient is visiting with family. She is comfortable in no acute distress. She is alert. CHEST: Lungs are clear to auscultation. HEART: Regular rate and rhythm. ABDOMEN: Soft, non-tender. Positive bowel sounds. EXTREMITIES: Bilateral pedal pulses are 1 and 2+, good capillary refill bilaterally with left hip having a dressing in place which is clean and dry. No signs of infection. NEUROLOGIC: She remains alert and oriented times three. LABORATORY: H&H showing to be fairly stable at 9.4 and 28.3. Chemistries show potassium 3.4 which is improved from previous days with BUN 13, creatinine 0.79. Blood sugars were showing to be fairly elevated between 173 and 326. MICROBIOLOGY: Final urine culture showed no growth at 36 hours. ASSESSMENT: 1. Left hip fracture status post left hemiarthroplasty per Dr. Kunal Santa, orthopedic surgeon, postoperative day #4. 2. Chronic obstructive pulmonary disease with concerns for community acquired pneumonia but more likely atelectasis, but with the patient receiving aggressive treatment and management showing improvement. 3. Electrolyte imbalance, specifically hypokalemia and hypomagnesemia showing improvement with fluid replacement. 4. Gastroesophageal reflux disease. 5. Chronic hypertension showing to be stable. 6. Diabetes mellitus, type 2 with continued elevated blood sugars but showing to be stable requiring more aggressive management to have better control. 7. Seasonal allergies. PLAN: Will continue with strengthening and reconditioning. Continue the course of antibiotics. Continue with aggressive pulmonary hygiene as well. Hopefully be able to discharge to [facility] in the next 24 to 48 hours once those arrangements have been made with her insurance. Her blood sugars are showing to be fairly elevated. I am going to start her back on Glipizide but only at 2.5 mg daily compared to 5 b.i.d. Will add some additional a.c. coverage with sliding scale. Until she is able to transition to [facility] and continue with outpatient management, will continue to monitor and treat as needed. #[id number] MTDD
[2018-03-17] MEDS: SIMVASTATIN 20 MG TAB PO SCH (21:14)
[2018-03-17] MEDS: AMITRIPTYLINE HCL 25 MG TAB PO SCH (21:14)
[2018-03-17] MEDS: MONTELUKAST 10 MG TAB PO SCH (21:14)
[2018-03-17] MEDS: SODIUM CHLORIDE 0.9% (FLUSH) 10 ML SYG IV PRN (22:41)
[2018-03-18] MEDS: ACETAMINOPHEN W/COD #3 TAB 1 EA TAB PO PRN ×2 (00:08→08:20)
[2018-03-18] MEDS: ENOXAPARIN SODIUM 30 MG/0.3 ML SYG SUBCU SCH (02:14)
[2018-03-18] MEDS ORDERED: SODIUM CHLORIDE 0.9% 100ML 100 ML IVPB ONE (05:52)
[2018-03-18] MEDS ORDERED: ceFAZolin SODIUM 1 GM VIAL ONE (05:52)
[2018-03-18] MEDS: SODIUM CHLORIDE 0.9% (FLUSH) 10 ML SYG IV PRN (06:02)
[2018-03-18] MEDS: ceFAZolin SODIUM 2 GM in SODIUM CHLORIDE 0.9% 100ML 100 ML IVPB SCH (06:03)
[2018-03-18] MEDS: OMEPRAZOLE CAP 20 MG CAP PO SCH (06:03)
[2018-03-18] MEDS ORDERED: levoFLOXacin 500MG IV 100 ML IVPB ONE (08:02)
[2018-03-18] MEDS: INSULIN LISPRO 100 UNITS/ML PEN SUBCU SCH ×2 (08:09→12:43)
[2018-03-18] MEDS: METOPROLOL TARTRATE 25 MG TAB PO SCH (08:21)
[2018-03-18] MEDS: metFORMIN HCL 500 MG TAB PO SCH (08:22)
[2018-03-18] MEDS: LOSARTAN POTASSIUM 100 MG TAB PO SCH (08:22)
[2018-03-18] MEDS: hydroCHLOROthiazide 12.5 MG CAP PO SCH (08:22)
[2018-03-18] MEDS: SODIUM CHLORIDE 0.9% (FLUSH) 10 ML SYG IV SCH (08:22)
[2018-03-18] MEDS: LEVALBUTEROL NEBS 1.25 MG/3 ML VIAL NEB SCH (08:57)
[2018-03-18] MEDS: levoFLOXacin 500MG IV 500 MG in PREMIX BAG 1 BAG IVPB SCH (09:35)
[2018-03-18] MEDS ORDERED: glipiZIDE 5 MG TAB PO ONE (11:32)
[2018-03-18 14:47] VITALS: BP 159/72; TEMP 98; O2SAT 97
--- NOTE | 2018-03-21 10:03 | DS ---
SUPERVISING PHYSICIAN: Richard Mason MD ADMISSION DIAGNOSIS: 1. Left hip fracture. 2. Electrolyte imbalance, specifically hypokalemia. 3. Gastroesophageal reflux disease. 4. Hypertension. 5. Diabetes mellitus, type 2. 6. Seasonal allergies. DISCHARGE DIAGNOSIS: 1. Left hip fracture status post left hemiarthroplasty per Dr. Kunal Santa, orthopedic surgeon, postoperative day #5. 2. Chronic obstructive pulmonary disease with concerns for community acquired pneumonia but more likely atelectasis, but with the patient receiving aggressive treatment and management showing improvement. 3. Electrolyte imbalance, specifically hypokalemia and hypomagnesemia showing improvement with fluid replacement. 4. Gastroesophageal reflux disease. 5. Chronic hypertension showing to be stable. 6. Diabetes mellitus, type 2 with elevated blood sugars but fairly steady. 7. Seasonal allergies. LABORATORY STUDIES: CBC on admission showed a white count of 8,700, hemoglobin 12.6, hematocrit 37.6. On discharge and after surgery on 03/17/18, hemoglobin was 9.4, hematocrit 20.3. Coagulation studies on admission showed to be within normal limits with PT/PTT. Chemistries on admission showed potassium 3.4, BUN 22, creatinine 0.8. Liver functions all within normal limits. Magnesium low at 1.4. After replacement and prior to discharge it came up to 1.9. Chemistries on 03/17/18 showed potassium 3.4, BUN 13, creatinine 0.7. Blood sugars were showing to be between anywhere from 52 to 326. MICROBIOLOGY: Urine culture showed no growth at 36 hours. Urine on admission did show a trace intact blood with microscopic showing 3 to 5 RBC, 3 to 5 WBC, rare bacteria but 5 to 10 epithelial cells. RADIOLOGY: On admission she had a hip and pelvis x-ray showing a displaced left femoral neck fracture. She had a postsurgical x-ray of the hip which showed postsurgical changes of the hip, left arthroplasty. Initial chest x-ray on admission showed pulmonary hyperinflation with questionable fibrosis infiltrating the right apex. Followup x-ray on 03/15/18, single portable view showed chronic appearing increased interstitial changes, small appearance of previous exam without acute appearing infiltrate or consolidation. HOSPITAL COURSE: Ms. Woo was admitted on 03/12/18 with a hip fracture. There was also concerns that she might have pneumonia. She was treated with that with Levaquin and on the morning of 03/13/18 she was taken to surgery for repair of the fractured hip with a hemiarthroplasty. She had no complications intraoperatively and was followed postoperatively. She did well with postoperative management, both were treated for the possible pneumonia. She had aggressive pulmonary hygiene and showed good clinical response to that and was able to participate with physical therapy. Since she does live alone and is advanced in age at 87, she was to be placed to continue with rehabilitation program at [facility] which she was to do starting on 03/18/18 on the date of discharge. PLAN: Ms. Woo was discharged on 03/18/18 to be admitted to [facility] rehabilitation efforts at [facility]. Activities were weightbearing as tolerated per physical therapy. Diet was 1800 calorie ADA. Medications as per JUN. She can shower, no tub baths. Management was per Dr. Santa's postoperative instructions. She was to have a consultation with dietary and physical therapy for evaluation and treatment. She has followup appointments to see Dr. Santa and Dr. Jolly scheduled and was told to call Dr. Santa or her primary care physician, Dr. Kam Jolly, for any questions or concerns of future orders. New medications at discharge include: Tylenol No. 3 for pain provided by [facility]. All other medications prior to hospitalization were continued as prescribed. CONDITION ON DISCHARGE: Stable and improved. DISPOSITION: The patient was discharged to [facility]. #[id number] [facility]
== END 2018-03-18 14:50 | DRG 470 ==
LOC: ER 20:36 → OBSVTOIN 22:00 → MS 22:00
PROVIDERS: ADMIT Nurse Practitioner Acute Care; ATTEND Nurse Practitioner Acute Care
PROC: 0SRS019 Replacement of Left Hip Joint, Femoral Surface with Metal Synthetic Substitute, Cemented, Open Approach (ICD-10-PCS; principal; 2018-03-13 14:00)
DX: S72.012A Unspecified intracapsular fracture of left femur, initial encounter for closed fracture (principal); J98.11 Atelectasis; E87.6 Hypokalemia; K21.9 Gastro-esophageal reflux disease without esophagitis; I10 Essential (primary) hypertension; E11.9 Type 2 diabetes mellitus without complications; J44.9 Chronic obstructive pulmonary disease, unspecified; E83.42 Hypomagnesemia; J30.2 Other seasonal allergic rhinitis; W18.30XA Fall on same level, unspecified, initial encounter; R01.1 Cardiac murmur, unspecified; E78.5 Hyperlipidemia, unspecified; Z96.653 Presence of artificial knee joint, bilateral; Z98.1 Arthrodesis status; Z79.84 Long term (current) use of oral hypoglycemic drugs; Z88.0 Allergy status to penicillin; Z88.8 Allergy status to other drugs, medicaments and biological substances; Z88.6 Allergy status to analgesic agent

== ENCOUNTER → 2018-08-15 | Outpatient (CLI) | payer OTHER ==
--- NOTE | 2018-08-15 16:36 | RAD ---
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 No radiographic evidence of loosening. No effusion. No fracture or bone lesion. Electronically signed by: Reed Morris MD 08/15/2018 4:34 PM CDT
--- NOTE | 2018-08-15 16:37 | RAD ---
EXAM DESCRIPTION: Pelvis CLINICAL HISTORY: 88 years Female, M25.562, M25.552 COMPARISON: March 13, 2018. FINDINGS: AP pelvis. Stable left hip prosthesis. Right hip normal. No fracture or bone lesion. IMPRESSION: Negative Electronically signed by: Reed Morris MD 08/15/2018 4:35 PM CDT
== END ==
LOC: RAD 09:28
PROVIDERS: ATTEND Orthopaedic Surgery
DX: M25.552 Pain in left hip (principal); M25.562 Pain in left knee; Z96.652 Presence of left artificial knee joint

== ENCOUNTER → 2018-11-28 | Outpatient (CLI) | payer OTHER ==
--- NOTE | 2018-11-29 09:54 | MAM ---
EXAM DESCRIPTION: 3D Screening BILATERAL : Digital Mammography. CLINICAL HISTORY: 88 years Female ANNUAL SCREENING . No complaints. No personal or family history of breast cancer. Childbirth. Postmenopausal 30+ years. HRT 5 or more years ago. Lifetime risk of developing breast cancer (Tyrer-Cuzick model)(%): Not calculated due to age greater than 85 years. COMPARISON: 2-D digital screening bilateral study 09/20/2015. No prior reports available. TECHNIQUE: Bilateral CC and MLO projection full-field images, digital tomosynthesis mammographic technique. Bilateral digital 2-D full-field MLO images. CAD not available for tomosynthesis or 2-D images. FINDINGS: The breast parenchymal density pattern is: Heterogeneously dense breast tissue, which may obscure small masses. No skin thickening or nipple retraction. Focal asymmetry in the superior posterior right breast overlying the pectoral muscle on the MLO image. Not seen on the CC image. Most likely lateral, based upon MLO tomographic positioning. Not well seen on the prior study. Bilateral solitary microcalcifications and bilateral vascular calcifications. Left axillary lymph node. Right breast more dense than left, also seen on the prior study. No new focal, stellate mass or density, focal asymmetry , and no suspicious microcalcifications left breast. IMPRESSION: BI-RADS CATEGORY: 0 - INCOMPLETE- Need additional imaging evaluation. FOLLOW-UP: Recall for additional imaging: Right breast full-field LM tomosynthesis. Exaggerated CC 2-D projection right breast. Followed by targeted right breast ultrasound of the pectoral muscle.. Written communication concerning the IMPRESSION and Follow-up, will be mailed to the patient and referring health care provider. Electronically signed by: Demarcus Apodaca MD 11/29/2018 9:52 AM CDT
== END ==
LOC: MAMMO 08:30
PROVIDERS: ATTEND Family Medicine
DX: Z12.31 Encounter for screening mammogram for malignant neoplasm of breast (principal)

== ENCOUNTER → 2018-12-11 | Outpatient (CLI) | payer OTHER ==
--- NOTE | 2018-12-12 11:55 | US ---
EXAM DESCRIPTION: Breast,Right (accession [id number]), ultrasound. 3D Diagnostic, Right (accession [id number]): Digital breast tomosynthesis. CLINICAL HISTORY: 88 yearsFemaleABNORMAL MAMMO focal asymmetry right breast chest wall. Prior biopsy almost 30 years ago in the region of interest.. COMPARISON: Bilateral screening digital breast tomosynthesis 11/28/2018. TECHNIQUE: Right breast LM projection full-field images, digital mammographic tomosynthesis technique. Right breast 2-D digital full-field images. LM, CC, and laterally exaggerated CC projections. CAD not available . Transcutaneous scanning of the right breast utilizing pearson-scale and Doppler modes. Scanning performed by the ball point splitter and Dr. Apodaca. FINDINGS: Right breast parenchymal density pattern is: Heterogeneously dense breast tissue, which may obscure small masses. No skin thickening or nipple retraction focal asymmetry again visualized in the 12:00 to 11:00 position upper posterior right breast abutting the pectoral muscle. Not associated with calcifications. Other parenchymal calcifications and vascular calcifications. Possible lymph node. Ultrasound: Upper outer quadrant posterior right breast was scanned. Mostly fatty replacement with small islands of fibroglandular tissues. A somewhat irregular echogenic region of tissue is seen with variable posterior acoustic shadowing. No definite margins. No dominant solid mass or distinct cyst. No parenchymal edema or large calcifications. This could represent prior biopsy scar. IMPRESSION: BI-RADS CATEGORY: 3 - PROBABLY BENIGN. Management: Short interval (6-month) diagnostic right breast tomosynthesis and targeted right breast ultrasound.. The FINDINGS and the FOLLOW-UP plan were reviewed in person with the patient after the examination. Written communication explaining the IMPRESSION and FOLLOW-UP will be mailed to the patient and referring care provider. Electronically signed by: Demarcus Apodaca MD 12/12/2018 11:52 AM CDT
== END ==
LOC: MAMMO 11:00
PROVIDERS: ATTEND Family Medicine
DX: R92.2 Inconclusive mammogram (principal)
CPT/HCPCS: 76641; 77065; G0279

== ENCOUNTER → 2019-01-23 | Outpatient (CLI) | payer OTHER | LOC: GMAE 10:42 | PROVIDERS: ATTEND Family Medicine | DX: I10 Essential (primary) hypertension (principal); E11.9 Type 2 diabetes mellitus without complications; E78.2 Mixed hyperlipidemia ==

== ENCOUNTER → 2019-06-02 | Outpatient (CLI) | payer OTHER ==
--- NOTE | 2019-06-02 17:28 | US ---
EXAM DESCRIPTION: Breast,Right: Ultrasound CLINICAL HISTORY: 88 yearsFemaleABNL SCREEN postbiopsy scarring versus mass upper outer quadrant right breast ultrasound November 2018 COMPARISON: Diagnostic digital tomosynthesis right breast and directed right breast ultrasound November 2018 TECHNIQUE: Transcutaneous scanning of the upper-outer quadrant of the middle third of the right breast utilizing pearson-scale and Doppler modes. Scanning performed by the salt lifter ; observation by Dr. Apodaca. FINDINGS: Ultrasound: Scanning right breast upper outer quadrant centimeters from the nipple. At the 10:00 location is a circumscribed mass with hypoechoic and hyperechoic regions measuring 9.2 x 9.7 x 3.7 mm. The echogenic region is vascular consistent with a lymph node. Hyperechoic object with variable posterior shadowing measuring 7.1 x 4.1 mm in the similar region is most likely a small lipoma. Also seen on the prior study. No dominant solid mass, no distinct cyst, no large calcifications. No overlying skin changes. IMPRESSION: Benign exam. Lipoma and lymph nodes in the region of interest. BIRAD CATEGORY: 2 BENIGN FINDINGS. RECOMMENDATIONS: FOLLOW UP: Routine digital bilateral mammographic screening, in November 2019. Written communication explaining the IMPRESSION and follow-up, will be mailed to the patient and referring health care provider. The FINDINGS and the FOLLOW-UP plan were reviewed in person with the patient after the examination. According to the [employer], yearly mammograms are recommended starting at age 40 and continuing as long as a woman is in good health. Any breast change noted on a breast self-exam should be reported promptly to the patient's healthcare provider. Breast MRI is recommended for women with an approximately 20-25% or greater lifetime risk of breast cancer, including women with a strong family history of breast or ovarian cancer and women who have been treated for Hodgkin's disease. A negative mammographic report should not delay tissue diagnosis in patients with significant clinical history or physical findings. Extremely dense breast tissue limits the sensitivity of digital mammography. Electronically signed by: Demarcus Apodaca MD 06/02/2019 5:27 PM [facility]
== END ==
LOC: MAMMO 09:44
PROVIDERS: ATTEND Family Medicine
DX: D17.9 Benign lipomatous neoplasm, unspecified (principal)

== ENCOUNTER → 2019-06-25 | Outpatient (CLI) | payer OTHER ==
--- NOTE | 2019-06-26 13:13 | CT ---
EXAM DESCRIPTION: Chest w/o Contrast : Computed Tomography. CLINICAL HISTORY: 88 years Female OTHER NONSPECIFIC ABNORMAL FINDING OF LUNG FLUID COMPARISON: Chest radiograph February 2018. TECHNIQUE: Spiral-axial scans at 5 x 5 mm intervals through the lungs and thorax without IV contrast. 2.5 x 5 mm lung algorithm axial reconstructions. Coronal and sagittal 2.0 Mm reconstructions. Total Exam DLP: 233.MGy-cm. This exam was performed according to our departmental dose-optimization program which includes automated exposure control, adjustment of the mA and/or kV according to patient size and/or use of iterative reconstruction technique; to reduce radiation dose to as low as reasonably achievable (ALARA). Nodule measurements under 10 mm are given as mean value of 3 axes diameters. FINDINGS: Lungs and large airways: 3.5 mm groundglass nodule medial right apex on axial series 4, image 26. Bilateral perihilar peribronchial wall cuffing is mild. Pleural parenchymal scarring inferior lingula. Inferior right upper lobe, bilateral bases. Posterior dependent atelectasis left lower lobe. Bilateral calcified nodules in the upper lobes less than 2 mm diameter. Regions of perifissural thickening bilaterally less than 10 mm. Linear subpleural scar abutting the lateral insertion of the horizontal fissure. No abnormal nodules or definite masses. No focal infiltrates. Pleural spaces: Bilateral apical pleural thickening and scattered areas of focal thickening bilaterally. No effusion or pneumothorax. Mediastinum and Ifeoma: Evaluation limited due to lack of IV contrast large hiatal hernia. Small lymph nodes. Great vessels and Heart: Evaluation limited due to lack of IV contrast. Coronary artery calcifications. Several brachiocephalic vessels and aortic arch and descending thoracic aorta are calcified. Soft tissues of neck base, axillae, and chest wall: Evaluation limited due to lack of IV contrast. Calcification of some axillary nodes. Bilateral dense fibroglandular breast tissue. Left thyroid lobe and isthmus not visible. Upper abdomen: No free air or fluid in the peritoneal cavity. Normal density and size of adrenal glands and spleen. Nodular thickening of the margins of the hemidiaphragms on the right. Atherosclerotic calcifications. Osseous structures: Decreased bone density. Spondylosis of the thoracic spine. Sternoclavicular and glenohumeral joint arthrosis. IMPRESSION: 1. 3.5 mm groundglass nodule medial right lung apex. Senescent markings in the lungs bilaterally. Bibasilar and bilateral pleural parenchymal scarring. No abnormal nodules and no masses. No focal infiltrates. [employer] guidelines: 3.5 mm ground glass pulmonary nodule within the upper lobe. No routine follow-up imaging is recommended. These guidelines do not apply to immunocompromised patients and patients with cancer. Follow up in patients with significant comorbidities as clinically warranted. For lung cancer screening, adhere to Lung-RADS guidelines. Reference: Radiology. 2017; 284(1):228-43. 2. Large gastric hiatal hernia. Electronically signed by: Demarcus Apodaca MD 06/26/2019 1:11 PM CDT
== END ==
LOC: CT 10:00
PROVIDERS: ATTEND Family Medicine
DX: R91.8 Other nonspecific abnormal finding of lung field (principal)

== ENCOUNTER → 2020-02-02 | Outpatient (CLI) | payer OTHER | LOC: GMAE 12:10 | PROVIDERS: ATTEND Family Medicine | DX: E11.9 Type 2 diabetes mellitus without complications (principal); R94.6 Abnormal results of thyroid function studies; I10 Essential (primary) hypertension; E78.2 Mixed hyperlipidemia ==

== ENCOUNTER → 2020-05-05 | Outpatient (CLI) | payer MEDICARE | LOC: GMAE 10:34 | PROVIDERS: ATTEND Family Medicine | DX: R94.6 Abnormal results of thyroid function studies (principal) ==